=== PATIENT | male | born 1985 | race Caucasian/White ===

== ENCOUNTER → 2018-01-09 11:00 | Outpatient (CLI) | payer MEDICARE, MEDICAID, BC, SELFPAY ==
--- NOTE | 2018-01-09 11:07 | RAD_ITS ---
STUDY: X-RAY - RIGHT WRIST REASON FOR EXAM: Male, 32 years old. Pain and swelling TECHNIQUE: 3 view(s) of the wrist were obtained. COMPARISON: None. FINDINGS: There is fixation hardware spanning a healed distal radial fracture. The hardware is intact and alignment is satisfactory. There is no evidence of fracture or dislocation. There are no significant degenerative changes. There are no radiodense foreign bodies. RAD/Wrist min 3 Views IMPRESSION: Fixation hardware spanning a healed distal radial fracture with intact hardware in satisfactory alignment. No fracture or dislocation. Electronically Signed: Luis Fernando Macias, at 16:48 EST Tel , Service support ,
--- NOTE | 2018-01-09 11:07 | RAD_ITS ---
STUDY: X-RAY - RIGHT HAND REASON FOR EXAM: Male, 32 years old. Pain and swelling TECHNIQUE: 3 view(s) of the hand. COMPARISON: 07/25/2014 FINDINGS: There is no evidence of fracture or dislocation. There are no significant degenerative changes. There are no radiodense foreign bodies. RAD/Hand Min 3 Views IMPRESSION: No fracture or dislocation. Electronically Signed: Luis Fernando Macias, at 16:49 EST Tel , Service support ,
== END ==
PROVIDERS: Referring Provider Physician Assistant; Visit Provider Physician Assistant
DX: M25.531 Pain in right wrist (principal); M79.641 Pain in right hand
CPT/HCPCS: 73110; 73130

== ENCOUNTER 2018-05-22 20:06 | Emergency (ER) | payer BC, SELFPAY ==
[2018-01-09 10:59] VITALS: BMI 21.2
[2018-05-22 20:06] VITALS: BP 128/74; PULSE 59; RESP 18; TEMP 36.7; O2SAT 97; BMI 24.3
--- NOTE | 2018-05-22 21:06 | RAD_ITS ---
HISTORY: LOW BACK PAIN S/P INJURY LIFTING HEAVY OBJECT EXAM/TECHNIQUE: XR Spine Lumbar 2 or 3 Views: COMPARISON: CT abdomen pelvis 10/17/15 FINDINGS: # of images incl. paperwork: 3 No fracture or dislocation or osseous destruction. Alignment anatomic. No significant degenerative changes. No acute findings in the soft tissues. RAD/Lumbar Spine 2 or 3 Views IMPRESSION: No acute findings. at 2138 Reported and signed by: Chepe Hodge MD Electronically Signed: Chepe Hodge, at 21:37 EDT Tel , Service support ,
--- NOTE | 2018-05-22 22:32 | ED.DCSUM_ITS ---
- ER Visit Summary Date of Service: 05/22/18 Chief Complaint: [Back pain] History of Present Illness: The patient is a 32 M [presents the emergency department with complaint of back pain that he said for about 2 weeks. Patient states that he was at [place] when he lifted a large steel mud pump weighing approximately 200 pounds. Patient developed discomfort in his low back. Patient continues to have the same discomfort and ibuprofen is not helping his pain. Patient does not want to file this under workman's comp. He denies any numbness or tingling in his legs. He denies any pain radiating down the legs. He denies loss of bowel or bladder function. He denies saddle anesthesia.] Physical Examination: [HEENT-PERRLA, EOMI. Cranial nerves II through XII grossly intact. TMs clear. Mucous membranes moist. No adenopathy. Cardiovascular-regular rate and rhythm without murmur or ectopy Lungs-clear to auscultation, chest wall stable without crepitus or subcu emphysema Abdomen-normoactive bowel sounds, soft, nontender, no rebound or rigidity, no peritoneal signs. Back exam-patient has tenderness diffusely over the lower lumbar spine. No erythema or warmth noted. Negative straight leg raises. Deep tendon reflexes are plus 2 out of 4 bilaterally at the patella and Achilles. Patient has normal L5 extension bilaterally. Extremities-intact ?4, normal range of motion, normal pulses, atraumatic] Test Results: [Lumbar spine x-rays were normal.] Emergency Department Course and Treatment: [] Treatment Plan: [Patient will be given a prescription for Flexeril, Naprosyn, [place]. Patient will be given a referral to primary care physician for follow- up] Disposition: [Discharged home in stable condition] Impression: [Lumbar strain] This note was generated with [employer] dictation software. It may contain incorrect words, spelling, and punctuation that were not noted in review of the chart prior to signing ED Disposition - Plan for ED Patient: Referrals: Care Physician,No Primary [Primary Care Provider] -
--- NOTE | 2018-05-22 22:33 | DCINST.ED_ITS ---
ED Disposition - Plan for ED Patient: Instructions: ED Sprain Strain Lumbar Prescriptions: Hydrocodone Bitart/Apap 5-325 [[place] 5MG-325MG] 1 tab PO Q4H PRN PRN 2 Days #10 tab PRN Reason: Pain Naproxen [Naprosyn] 500 mg PO BID PRN #20 tab Cyclobenzaprine [Flexeril] 10 mg PO TID PRN #20 tab PRN Reason: Muscle Spasm Referrals: Care Physician,No Primary [Primary Care Provider] - Marin Varner MD [STAFF PHYSICIAN] - 5-7 Days
[2018-05-22] MEDS: HYDROcodone Bitartrate/Apap 5/325 Tablet PO (22:42)
[2018-05-22 22:43] VITALS: BP 138/87; PULSE 89; RESP 16; O2SAT 98
== END 2018-05-22 22:43 | disposition home or self-care (01) ==
LOC: ED 20:59
PROVIDERS: Emergency Provider Emergency Medicine
DX: S39.012A Strain of muscle, fascia and tendon of lower back, initial encounter (principal); Z72.0 Tobacco use; X50.0XXA Overexertion from strenuous movement or load, initial encounter; Y93.89 Activity, other specified; Y92.89 Other specified places as the place of occurrence of the external cause; Y99.0 Civilian activity done for income or pay
CPT/HCPCS: 72100; 99282

== ENCOUNTER 2020-04-26 10:28 | Emergency (ER) | payer SELFPAY ==
[2020-04-26 10:30] VITALS: BP 156/93; PULSE 83; RESP 16; TEMP 35.9; O2SAT 98; BMI 22.4
--- NOTE | 2020-04-26 11:00 | ED.DCSUM_ITS ---
- ER Visit Summary Date of Service: 04/26/20 Chief Complaint: Right elbow pain and swelling History of Present Illness: The patient is a 34 M who presents with pain and swelling to his right elbow that has been getting worse over the past week. Patient denies any trauma or injury. Patient states the pain is worse with complete extension and complete flexion. Patient describes the pain as stabbing. Patient states nothing seems to help with the pain. Patient states the pain is been constant. Patient denies any paresthesias or weakness. Patient denies any trauma or injury. Patient denies any fevers or chills. Patient denies any redness. Physical Examination: Vital signs are stable. Patient is afebrile. Patient is in no acute distress. Musculoskeletal exam reveals mild tenderness over the olecranon bursa. There is an effusion noted in the olecranon bursa. There is no erythema or warmth. There is no bony crepitance or step-off. Range of motion was slightly limited in complete flexion and complete extension secondary to pain. Sensation was intact to light touch bilaterally in the radial, median, and ulnar areas. Radial pulses are equal bilaterally. Strength is 5/5 bilateral knee radial, median, and ulnar areas. Emergency Department Course and Treatment: Patient was advised that this is olecranon bursitis. Patient was given a prescription for ibuprofen to take as needed for pain and swelling. Patient was instructed to use ice to the area. Patient was given an Dao wrap. Patient was given referral to orthopedics. Patient was instructed to follow-up with his primary care physician in 5 to 7 days. Patient understood and was agreeable with the plan. All questions were answered. Disposition: Discharge home Impression: Olecranon bursitis This note was generated with [employer] dictation software. It may contain incorrect words, spelling, and punctuation that were not noted in review of the chart prior to signing ED Disposition - Plan for ED Patient: Disposition: Home or Assisted Living Diagnosis: Olecranon bursitis, right elbow Instructions: ED Bursitis Prescriptions: Ibuprofen [Motrin] 800 mg PO TID PRN PRN #20 tab PRN Reason: Swelling Prescription Printed Referrals: Abundio Nash DO [STAFF PHYSICIAN] - 5-7 Days
== END 2020-04-26 11:39 | disposition home or self-care (01) ==
LOC: ED 11:14
PROVIDERS: Emergency Provider Emergency Medicine
DX: M70.21 Olecranon bursitis, right elbow (principal); F17.200 Nicotine dependence, unspecified, uncomplicated
CPT/HCPCS: 99282

== ENCOUNTER 2021-07-25 13:59 | Emergency (ER) | payer MEDICARE, MEDICAID, SELFPAY ==
[2021-07-25 14:00] VITALS: BP 134/81; PULSE 80; RESP 16; TEMP 36.9; O2SAT 99; BMI 22.3
--- NOTE | 2021-07-25 14:17 | EX.ED.UPPERE ---
HPI History of Present Illness Chief Complaint: Upper Extremity Injury Informant: patient Narrative Narrative: Patient is noted a swollen area on the inner surface of his proximal left forearm for about a month maybe 2 months. He does not recall any specific injury at this time. He has no numbness tingling weakness. No fevers or chills. No pain with motion of the elbow at all. Nothing really makes it better or worse. It is never been red. It is never drained. No other areas. He has not been seen before for this. He does have a history of a small fracture in the elbow many years ago. So he cannot fully straighten the arm but that is not new or different. [facility] Medical History Arthritis Chest pain Chronic neck and back pain Hemorrhoid Knee pain Shoulder pain Unexplained weight loss Allergy/AdvReac Type Severity Reaction Status Date / Time No Known Allergies Allergy Verified 07/25/21 14:00 Social History Smoking Status: Current every day smoker tobacco type: cigarettes alcohol intake: never ROS ROS ED Constitutional Constitutional ED: Denies chills, fever(s), subjective or sweats Respiratory/Chest Respiratory/Chest: Denies dyspnea Gastrointestinal Gastrointestinal: Denies nausea or vomiting Musculoskeletal Musculoskeletal: Reports other Details: See history of present illness. ; Denies myalgias or neck pain Integumentary Reports other Details: See history of present illness peer Neurologic Neurologic: Denies paresthesias or weakness Endocrine Endocrinology: Denies polydipsia or polyuria Hematologic/Lymphatic Hematologic/Lymphatic: Denies easy bleeding or easy bruising Allergic/Immunologic Allergic/Immunologic ED: Denies urticaria EXAM Physical Exam Const Vital Signs: 07/25/21 14:00 Temperature 98.4 F Temperature Source Temporal Pulse Rate 80 Respiratory Rate 16 Blood Pressure 134/81 H Blood Pressure Mean 98 Pulse Ox 99 Oxygen Delivery Method Room Air Positive well nourished and well developed General Appearance ED: well developed and NAD HEENT Reports moist mucous membranes Resp normal respiratory effort Extremity Extremity Narrative: Patient does have a very well demarcated area about 1-1/2 to 2 cm around in the medial aspect of the forearm just distal to the elbow. It is very mobile within the subcutaneous tissue. It is not tender. It is not red. It is soft but not truly fluctuant. No swelling around the elbow itself. No pain with motion. He does have slight limitation of motion chronically as in history of present illness. No other areas are felt. Neuro no sensory deficits noted Sensorium / Orientation: alert Motor Exam: strength 5/5 throughout Psych mental status grossly normal Skin Skin Narrative: See above. MDM MDM MDM Narrative Medical decision making narrative: Patient has no injury or trauma. He does not use or inject any drugs. There is no redness. No sign of infection. This is been present for over a month. It feels as though this could be a lipoma. It certainly possible he could have a small seroma from injury. But this does not need to be drained or excised at this time. Follow-up will be appropriate. Plan was to follow-up with orthopedics. However, patient left because something happened and he had to leave all of a sudden. I did not get back in to talk to them. I had been seeing a patient with an acute neurologic deficit. Discharge Plan Triage Chief Complaint: Upper Extremity Injury ED Provider: Wiliam Schmidt Dx/Rx/DC Orders Clinical Impression: Soft tissue lesion of elbow region, Eloped from emergency department Primary Care Provider: Care Physician,No Primary Referrals: Care Physician,No Primary [Primary Care Provider] - Disposition Disposition: Elopement
--- NOTE | 2021-07-25 14:46 | ED.RN ---
PATIENT WAITING ON DISCHARGE PAPER WORK. EXITS ROOM, APOLOGIZES, AND STATES HE HAS SOMETHING IMPORTANT TO GO TO AND AMBULATED OUT OF THE ER. DR. OAKES NOTIFIED.
== END 2021-07-25 14:55 | disposition left against medical advice (07) ==
PROVIDERS: Emergency Provider Emergency Medicine; Visit Provider Emergency Medicine
DX: L98.9 Disorder of the skin and subcutaneous tissue, unspecified (principal); F17.210 Nicotine dependence, cigarettes, uncomplicated
CPT/HCPCS: 99282

== ENCOUNTER 2021-08-25 16:37 | Emergency (ER) | payer MEDICARE, MEDICAID, SELFPAY ==
[2021-08-25 16:38] VITALS: BP 131/91; PULSE 85; RESP 16; TEMP 37.4; O2SAT 99; BMI 21.7
--- NOTE | 2021-08-25 17:08 | EX.ED.UPPERE ---
HPI History of Present Illness Chief Complaint: Upper Extremity Injury Informant: patient Occured/Mechanism Comment: No injury. Onset/Context/Timing Context: Gradual Onset Timing: Intermittent Current Severity: Mild Maximum Severity: Mild Associated Symptoms Associated Symptoms: Negative for Parasthesia, Weakness or Loss of Funtion Narrative Narrative: 35-year-old male no significant past medical or surgical history. Said years ago he broke his right elbow. He has limited range of motion in the elbow. He said at times he gets an area that is gets tender. Denies any other complaints. Prior similar symptoms: No Recent Illness/Hospitalization: No PFSH PFSH Medical History Arthritis Chest pain Chronic neck and back pain Hemorrhoid Knee pain Shoulder pain Smoker Unexplained weight loss Home Medications NK 08/25/21 [History Last Taken Unknown] Allergy/AdvReac Type Severity Reaction Status Date / Time No Known Allergies Allergy Verified 07/25/21 14:00 Social History Smoking Status: Current every day smoker tobacco type: cigarettes alcohol intake: never ROS ROS ED ROS Narrative Denies recent illness. Review of Systems ROS Unobtainable: Denies due to encephalopathy Constitutional Constitutional ED: Denies chills Eyes Eyes: Denies blurry vision ENT ENT ED: Denies ear pain Cardiovascular Cardiovascular: Denies chest pain Respiratory/Chest Respiratory/Chest: Denies cough Gastrointestinal Gastrointestinal: Denies abdominal pain Genitourinary Genitourinary ED: Denies dysuria Musculoskeletal Musculoskeletal: Denies back pain Integumentary Denies abscess Neurologic Neurologic: Denies headache(s) Psychiatric Psychiatric: Denies anxiety Endocrine Endocrinology: Denies cold intolerance Hematologic/Lymphatic Hematologic/Lymphatic: Denies easy bleeding Allergic/Immunologic Allergic/Immunologic ED: Denies mouth swelling EXAM Physical Exam Narrative Exam Narrative: Well-appearing 35-year-old male. Vital signs stable afebrile. Heart lung dull exam unremarkable. Right elbow medial aspect in the subcu tissue there is an area that is mildly tender may be a ganglion cyst. Could also be a calcification. He has limited range of motion of the right elbow which is chronic from a prior fracture. There is no redness or warmth. There is no signs of infection. There is no axillary lymphadenopathy. Right wrist and hand are nontender. Nonswollen. 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 Normal radial pulse. Const Vital Signs: 08/25/21 16:38 Temperature 99.3 F H Temperature Source Temporal Pulse Rate 85 Respiratory Rate 16 Blood Pressure 131/91 H Blood Pressure Mean 104 Pulse Ox 99 Oxygen Delivery Method Room Air Positive well nourished and well developed; Negative for obese, cachectic, contractures or unkempt General Appearance ED: well developed; Negative for unkempt, cachectic or contractures Nutritional Appearance: Negative for cachectic or obese HEENT Reports moist mucous membranes normocephalic and atraumatic; Negative for trauma or tenderness Eyes PERRL and EOMs intact bilaterally Neck full ROM and supple General: Negative for tenderness Lymph Lymphatic: Negative for other Chest Wall inspection of chest normal and palpation of chest normal Resp normal respiratory effort and clear to auscultation bilaterally Auscultation: Negative for rales, rhonchi or wheezes Cardio regular rate, regular rhythm, S1 normal heart sound, S2 normal heart sound and no murmurs Rate: Negative for bradycardia Rhythm: Negative for abnormal rhythm GI non-tender, non-distended and no masses Inspection: Negative for abdominal distention Auscultation: normoactive bowel sounds Palpation: soft; Negative for tender or guarding Extremity normal to inspection and full ROM Extremity Narrative: Except right elbow and subcu tissue immediately there is a small area that is tender that may be a ganglion cyst versus calcification versus other etiology. There is no signs of external foreign body, puncture wound or infection. He has limited supination and pronation of the right elbow from a prior fracture but he has normal flexion extension. The elbow itself is not tender, warm, red or swollen. There is no axillary lymphadenopathy. Neuro oriented x3, moves all extremities, no focal motor deficits and no sensory deficits noted Sensorium / Orientation: alert, oriented to person, oriented to place and oriented to time Motor Exam: strength 5/5 throughout Psych mental status grossly normal Appearance: Negative for unkempt Attitude: No agitated Mood & Affect: Negative for depressed or anxious Skin General Skin Exam: Negative for petechiae Lesions: no lesions Rashes: no rashes Trauma: no lacerations or abrasions MDM MDM MDM Narrative Medical decision making narrative: 35-year-old male with possible ganglion cyst radial near his right elbow. Explained him there is nothing to do currently. He can follow-up with orthopedics if he wanted either injected or possibly resected. This could also be a calcification.. He was offered but deferred x-ray at this time. Discharge Plan Triage Chief Complaint: Upper Extremity Injury ED Provider: Shashank Brunson Dx/Rx/DC Orders Clinical Impression: Ganglion cyst Instructions: ED Ganglion Cyst Prescriptions: No Action NK Primary Care Provider: Care Physician,No Primary Referrals: Shoaib Mishra MD [STAFF PHYSICIAN] - As Needed Care Physician,No Primary [Primary Care Provider] - Activity Restrictions/Additional Instructions: This is most likely a ganglion cyst. Often they do not do anything for these. Sometimes you can have them surgically removed. Or injected. You can follow-up with the orthopedic doctor to discuss that with them. If is not bothering you you do not need to do anything. This could also just be a calcification. Disposition Disposition: Home, Self Care
[2021-08-25 17:19] VITALS: BP 120/75; PULSE 76; RESP 15; O2SAT 98
== END 2021-08-25 17:20 | disposition home or self-care (01) ==
PROVIDERS: Emergency Provider Emergency Medicine; Visit Provider Emergency Medicine
DX: M67.421 Ganglion, right elbow (principal)
CPT/HCPCS: 99282

== ENCOUNTER 2023-04-14 04:40 | Emergency (ER) | payer MEDICAID, SELFPAY ==
--- OUTSIDE RECORDS SUMMARY | 2023-04-14 06:50 | XMS RPT_ITS | CCD ---
Author Name Unknown Address [address] [facility] [address] [place] [address] Organization [facility] Care Team Providers Care [employer] Name Role Phone Aram Renner Unavailable Unavailable [facility] Unavailable Unavailable Aram Renner Unavailable Unavailable Aram Renner Unavailable Unavailable RennerAram quintana Unavailable Unavailable [facility] Unavailable Unavailable RennerAram quintana Unavailable Unavailable [facility] Unavailable Unavailable Farrier, Lucía L Unavailable Unavailable [facility] Unavailable Unavailable Farrier, Lucía L Unavailable Unavailable [facility] Unavailable Unavailable Farrier, Lucía L Unavailable Unavailable [facility] Unavailable Unavailable Farrier, Lucía L Unavailable Unavailable Farrier, Lucía L Unavailable Unavailable Farrier, Lucía L Unavailable Unavailable [facility] Unavailable Unavailable Required, No Pcp Unavailable Unavailable Amilcar Lopez Unavailable Unavailable Roge Rico Unavailable SIRI BONNER Attending Unavailable SIRI BONNER Primary Care Unavailable SIRI BONNER Admitting Unavailable Dr. Roge Rico Attending Unavail able John, Dr. Amilcar Hylton Attending Unavaila ble Unavailable Primary Care Provider Unavailabl e Medications Completed/Discontinued Medications Medication Drug Class(es) Dates Sig (Normalized) Sig (Original) hydrocortisone acetate 25 mg rectal suppository (1 source) Corticosteroid Start: 04-14-2017 hydrocortisone (HEMORRHOIDAL HC) 25 mg suppository 1 Suppository by RECTAL route twice daily. 14 Suppository 0 04/14/2017 Active Problems Active Problems Problem Classification Problem Date Documented Da te Episodic/Chronic E Codes: Other specified and classifiable (1 source) Caught, crushed, jammed, or pinched between stationary objects, initial encounter; Translations: [Caught, crush, jammed, or pinched betw stationry obj, init] Onset: 06-26-2022 Episodic Other connective tissue disease (2 sources) Pain in left finger(s); Translations: [Pain in left finger(s)] Onset: 06-26-2022 Episodic Other connective tissue disease (2 sources) Other specified soft tissue disorders; Translations: [Other specified soft tissue disorders] Onset: 06-26-2022 Episodic Other connective tissue disease (1 source) Pain in right hand; Translations: [Pain in right hand] 09-23-2022 Episodic Unclassified (4 sources) RIGHT ELBOW PAIN 01-17-2022 Past or Other Problems Problem Classification Problem Date Documented Da te Episodic/Chronic E Codes: Fall (1 source) Unspecified fall, initial encounter; Translations: [Unspecified fall, initial encounter] Onset: 01-17-2022 Episodic Hemorrhoids (1 source) Thrombosed hemorrhoids; Translations: [Perianal venous thrombosis] Onset: 05-24-2014 05-24-2014 Episodic Other injuries and conditions due to external causes (1 source) Unspecified injury of right elbow, initial encounter; Translations: [Unspecified injury of right elbow, initial encounter] Onset: 01-17-2022 Episodic Other non-traumatic joint disorders (1 source) Pain in right elbow; Translations: [Pain in right elbow] Onset: 01-17-2022 Episodic Superficial injury; contusion (3 sources) Contusion of elbow; Translations: [Contusion of elbow] Onset: 01-17-2022 01-17-2022 Episodic Results Test Name Value Interpretation Reference Range Facil ity Vital Signs Date Time Vital Sign Value Performing Clinician Faci lity 01-17-2022 13:30-0500 Diastolic blood pressure 88 mm[Hg] No Pcp Required [facility] 01-17-2022 13:30-0500 Heart rate 78 /min No Pcp Required [facility] 01-17-2022 13:30-0500 Respiratory rate 16 /min No Pcp Required [facility] 01-17-2022 13:30-0500 SaO2% (BldA) [Mass fraction] 100 % No Pcp Required [facility] 01-17-2022 13:30-0500 Systolic blood pressure 134 mm[Hg] No Pcp Required [facility] 01-17-2022 12:03-0500 Body height 170.1 cm No Pcp Required [facility] 01-17-2022 12:03-0500 Body temperature 97.7 [degF] No Pcp Required [facility] 01-17-2022 12:03-0500 Body weight 66 kg No Pcp Required [facility] Encounters Encounter Date Encounter Type Care Provider Facility Start: 09-23-2022 Orders Only Ravi Harley MD Work Phone: Orthopaedics Plan of Treatment Date Care Activity Detail Author Start: 10-15-2022 Influenza vaccination INFLUENZA (#1) [facility] Start: 02-14-2022 DEPRESSION ASSESSMENT DEPRESSION ASSESSMENT [facility] Start: 2021 LIPID SCREEN LIPID SCREEN [facility] Start: 2005 Urine microalbumin profile DTAP,TDAP,TD (1 - Tdap) [facility] Start: 2004 HEPATITIS C SCREENING HEPATITIS C SCREENING [facility] Start: 2004 HIV SCREENING HIV SCREENING [facility] Start: 1992 PNEUMOCOCCAL (1 - PCV) PNEUMOCOCCAL (1 - PCV) [facility] Start: 05-09-1987 COVID-19 VACCINE (#1) COVID-19 VACCINE (#1) [facility] Start: 1986 HEPATITIS B (1 of 3 - 3-dose series) HEPATITIS B (1 of 3 - 3-dose series) [facility] End: 10-23-2023 XR HAND GENERAL 3V PA/LAT/OBL RIGHT XR HAND GENERAL 3V PA/LAT/OBL RIGHT Radiology Routine Right hand pain 1 Occurrences starting 09/23/2022 until 10/23/2023 [facility] Work Phone: Payers Date Payer Category Payer Medicaid MEDICAID [facility] MEDICAID [id number] 2017-Present [phone] [address] [place] [address] Medicaid [id number] 2016 Medicare 2016 Unknown 2016 Worker's Compensation 1986 Unknown [id number] 1986 Unknown [id number] 1986 Unknown [id number] Medicaid [id number] Medicare [id number] Unknown [id number] Social History Date Type Detail Facility [facility] Tobacco smoking consumption unknown [facility] Start: 10-18-2019 Tobacco smoking stat us NHIS Smokes tobacco daily [facility] History of tobacco use Cigarette Smoker [facility] Start: 10-18-2019 End: 01-22-2020 Cigarettes smoked current (pack per day) - Reported 0.5 [facility] Start: 10-18-2019 Tobacco use and exposure User of smokeless tobacco [facility] History of tobacco use Chews Tobacco [facility] Start: 10-18-2019 Alcohol intake Ex-drinker (finding) [facility] Start: 10-18-2019 End: 01-22-2020 Tobacco use panel [facility] National Score (1-10 0), lower number is lower risk Not on file [facility] Start: 10-18-2019 Tobacco Comment quiotting info rmation given [facility] Start: 05-23-2014 [facility] Start: 1985 Sex Assigned At Not on file [facility] Evaluation note Note Date & Type Note Facility documented in this encounter [facility] Reason for referral (narrative) Diagnostic Procedure Only (Routine) - Pending Review Note Date & Type Note Facility Referral ID Status Reason Start Date Expiration Date Visits Requested Visits Authorized [id number] Pending Review Auto-Generat ed Referral 09/23/2022 10/23/2023 1 1 [facility] Summary Purpose Family History No Family History Records FoundNo Family History Records FoundNo Family History Records FoundNo Family History Records FoundNo Family History Records Found Advance Directives No Advanced Directives Records FoundNo Advanced Directives Records FoundNo Advanced Directives Records FoundNo Advanced Directives Records FoundNo Advanced Directives Records Found Reason for Referral * Right Elbow ContusionRight Elbow Contusion * Right Elbow ContusionRight Elbow Contusion Additional Source Comments (unrecognized sect ion and content) No Status Records FoundNo Status Records FoundNo Status Records FoundNo Status Records FoundNo Status Records Found INFORMATION SOURCE (unrecogn ized section and content) DATE CREATED AUTHOR AUTHOR'S ORGANIZ ATION 10/25/2019 [facility] DATE CREATED AUTHOR AUTHOR'S ORGANIZ ATION 03/09/2021 [facility] DATE CREATED AUTHOR AUTHOR'S ORGANIZ ATION 06/27/2022 [facility] DATE CREATED AUTHOR AUTHOR'S ORGANIZ ATION 08/28/2022 [facility] <item><item><item> Privacy Markings (unrecogniz ed section and content) Section Author: Ayde Sousa PROHIBITION ON REDISCLOSURE OF CONFIDENTIAL INFORMATION This notice accompanies a disclosure of information concerning a client made to you with the consent of such client. Section Author: Ayde Sousa PROHIBITION ON REDISCLOSURE OF CONFIDENTIAL INFORMATION This notice accompanies a disclosure of information concerning a client made to you with the consent of such client. Section Author: Ayde Sousa PROHIBITION ON REDISCLOSURE OF CONFIDENTIAL INFORMATION This notice accompanies a disclosure of information concerning a client made to you with the consent of such client. Source Comments (unrecognize d section and content) In the event this informatio n is protected by the Federal Confidentiality of Alcohol and Drug Abuse Patient Records regulations: The Federal rules restrict any use of the information to criminally investigate or prosecute any alcohol or drug abuse patient.[facility] FOR RECORDS PERTAINING TO PATIENTS WHO ARE OR HAVE BEEN ENROLLED IN A CHEMICAL DEPENDENCY/SUBSTANCEABUSE PROGRAM, SOME INFORMATION MAY BE OMITTED. This clinical summary was aggregated from multiple sources. Caution should be exercised in using it in the provision of clinical care. This summary normalizes information from multiple sources, and as a consequence, information in this document may materially change the coding, format and clinical context of patient data. In addition, data may be omitted in some cases. CLINICAL DECISIONS SHOULD BE BASED ON THE PRIMARY CLINICAL RECORDS. [facility] [employer] [facility]. provides no warranty or guarantee of the accuracy or completeness of information in this document.
== END 2023-04-14 05:47 | disposition home or self-care (01) ==
LOC: ED 06:38
PROVIDERS: Emergency Provider Emergency Medicine; Visit Provider Emergency Medicine
DX: H16.9 Unspecified keratitis (principal)
CPT/HCPCS: 99284

== ENCOUNTER 2023-05-17 16:42 | Emergency (ER) | payer MEDICAID, SELFPAY ==
[2023-05-17 16:43] VITALS: BP 131/95; PULSE 75; PULSE 87; RESP 16; TEMP 36.3; O2SAT 99; BMI 23.3
--- NOTE | 2023-05-17 16:50 | ED.RN ---
RT SIDE FACIAL DROOP, WHEN PT RAISES EYEBROWS ABLE TO WRINKLE LT SIDE OF FOREHEAD BUT NOT RT SIDE OF FOREHEAD.
--- NOTE | 2023-05-17 17:32 | EDS_ITS ---
HPI History of Present Illness Chief Complaint: Numb/Ting Narrative Narrative: 37-year-old male presenting with numbness and tingling to the right side of his upper lip and right side of his face which started about 5 to 6 days ago. Patient states it came on fairly abruptly. No history of stroke. He states he has not had any medical problems otherwise. He states that he has been able to eat but notices when he brushes his teeth that he drools out of the right side of his mouth. Denies headache, visual complaints. Patient does state that a week before that he noticed he had a little bit of ear pain and facial pain which had gone away. This was on the right side as well. Patient states that after several days of this numbness and tingling he became concerned. [facility] Medical History Arthritis Chest pain Chronic neck and back pain Hemorrhoid Knee pain Shoulder pain Smoker Unexplained weight loss Home Medications acyclovir 800 mg tablet 800 mg PO 5X/DAY #35 TABLETS 05/17/23 [Rx Last Taken Unknown] prednisone 20 mg tablet 60 mg (3 x 20 mg) PO DAILY #18 TABLETS 05/17/23 [Rx Last Taken Unknown] white petrolatum-mineral oil 56.8 %-42.5 % eye ointment (Refresh Lacri-Lube) 1 applic EACH EYE BID PRN dry eyes #3.5 grams 05/17/23 [Rx Last Taken Unknown] Allergy/AdvReac Type Severity Reaction Status Date / Time No Known Allergies Allergy Verified 05/17/23 16:45 Social History Smoking Status: Current every day smoker tobacco type: cigarettes alcohol intake: never ROS ROS ED Constitutional Constitutional ED: Denies chills, fever(s) or sweats Eyes Eyes: Denies blurry vision or change in vision ENT ENT ED: Denies ear pain or sore throat Cardiovascular Cardiovascular: Denies chest pain, palpitations or racing heartbeat Respiratory/Chest Respiratory/Chest: Denies cough, dyspnea or sputum Gastrointestinal Gastrointestinal: Denies abdominal pain, constipation, diarrhea, nausea or vomiting Genitourinary Genitourinary ED: Denies dysuria, hematuria or urinary frequency Musculoskeletal Musculoskeletal: Denies arthralgias, myalgias or neck pain Integumentary Denies abscess, Abrasions or rash Neurologic Neurologic: Reports paresthesias and other Details: Right-sided facial droop ; Denies headache(s) or weakness Psychiatric Psychiatric: Denies anxiety, depression, suicidal ideation or suicidal thoughts Endocrine Endocrinology: Denies polydipsia or polyuria EXAM Physical Exam Const Vital Signs: 05/17/23 16:43 05/17/23 16:43 Temperature 97.4 F L 97.4 F L Temperature Source Temporal Temporal Pulse Rate 75 87 Respiratory Rate 16 16 Blood Pressure 131/95 H 131/95 H Blood Pressure Mean 107 107 Pulse Ox 99 99 Oxygen Delivery Method Room Air Room Air Positive well nourished General Appearance ED: NAD; Negative for pallor HEENT Reports moist mucous membranes Eyes PERRL and EOMs intact bilaterally Chest Wall inspection of chest normal Resp normal respiratory effort Cardio regular rate and regular rhythm Neuro oriented x3 Neuro Narrative: Mild right-sided facial droop at the right nasolabial fold with mild decrease sensation loss over the right cheek and the right lower chin. Also noted decreased sensation over the right forehead. Right forehead is not spared and he is not able to wrinkle his forehead. Sensorium / Orientation: alert Motor Exam: strength 5/5 throughout Psych mental status grossly normal Skin General Skin Exam: Negative for jaundice or pallor MDM MDM MDM Narrative Medical decision making narrative: Patient with symptoms of Williamson's palsy. He states his symptoms happened with last week. He became concerned and they did not go away. He also reports right ear pain and right facial pain about a week prior to this. Patient counseled that likely medication will be less useful a week out but we will start him on Soma slightly on prednisone. He is also counseled to keep his right eye closed when he sleeps and to use some lubricating drops which were prescribed to him. Patient counseled this will take to take weeks and sometimes months. Return precautions discussed. Impression: 1. Right-sided Williamson's palsy Discharge Plan Triage Chief Complaint: Numb/Ting ED Provider: Elia Knight Dx/Rx/DC Orders Instructions: Williamson's Palsy Prescriptions: New acyclovir 800 mg tablet 800 mg PO 5X/DAY Qty: 35 0RF prednisone 20 mg tablet 60 mg PO DAILY Qty: 18 0RF Refresh Lacri-Lube 56.8-42.5 % ointment 1 applic EACH EYE BID PRN (Reason: dry eyes) Qty: 3.5 0RF Rx Instructions: Please use at nighttime before bed. Primary Care Provider: Care Physician,No Primary Referrals: [facility] [Outside] - 3-5 Days Care Physician,No Primary [Primary Care Provider] - Disposition Disposition: Home, Self Care
--- NOTE | 2023-05-17 17:59 | ED.RN ---
pt left without prescriptions and d/c papers
== END 2023-05-17 18:03 | disposition home or self-care (01) ==
LOC: ED 17:37
PROVIDERS: Emergency Provider Student in an Organized Health Care Education/Training Program; Visit Provider Student in an Organized Health Care Education/Training Program
DX: G51.0 Bell's palsy (principal); F17.210 Nicotine dependence, cigarettes, uncomplicated
CPT/HCPCS: 99282

== ENCOUNTER → 2023-11-11 | Outpatient (CLI) | payer MEDICAID, SELFPAY ==
--- NOTE | 2023-11-11 17:04 | CT_ITS ---
EXAM: CT RIGHT UPPER EXTREMITY WITHOUT INTRAVENOUS CONTRAST CLINICAL INDICATION: pain at the base of the 5th MC after fracture TECHNIQUE: Helically acquired images were obtained of the right upper extremity without intravenous contrast. 2-D reformats were performed by the technologist. This CT exam was performed using one or more of the following dose reduction techniques: automated exposure control, adjustment of the mA and/or kV according to patient size, and/or use of iterative reconstruction technique. COMPARISON: No relevant prior studies available. FINDINGS: BONES/JOINTS: Diffuse degenerative narrowing of the carpometacarpal joints associated with subchondral cyst formation and mild osteophytosis.. Portion of the deformity involving the base of the fourth and fifth metacarpals and the distal articular surface of the hamate may be related to old fractures. Remainder of the bones and joints of the hand and wrist appear intact. Surgical fixation partially visualized along the distal portion of the radius. SOFT TISSUES: Normal. No soft tissue swelling or gas. No radiopaque foreign body. CT/Extremity Upper without Contra IMPRESSION: Degenerative changes of the carpometacarpal joints which may be related to prior injury. No acute bone or joint abnormality. Electronically Signed: Monster Corado MD at 8:44 EDT ,
== END | disposition home or self-care (01) ==
LOC: CT 17:03
PROVIDERS: Referring Provider Orthopaedic Surgery Sports Medicine; Visit Provider Orthopaedic Surgery Sports Medicine
DX: M79.641 Pain in right hand (principal)
CPT/HCPCS: 73200

== ENCOUNTER 2023-11-12 08:31 | Emergency (ER) | payer MEDICAID, SELFPAY ==
[2023-11-12 08:32] VITALS: BP 130/91; PULSE 77; RESP 18; TEMP 36.5; O2SAT 98; BMI 22.6
--- NOTE | 2023-11-12 08:55 | ED.RN ---
WENT IN TO ASSESS PT AND PT STATES HE WANTS INFORMATION ABOUT BEING SICK. EXPLAINED PT NEEDS TO PUT A GOWN ON AND THAT THE DR WILL BE IN TO SEE HIM. PT IS REFUSING TO PUIT A GOWN ON AND DOESN'T FEEL HE NEEDS TO HAVE THINGS DONE. WANTS TO KNOW HOW LONG THIS WILL TAKE AND EXPLAINED IT MAY TAKE AWHILE BECAUSE THIS IS THE EMERGENCY ROOM AND THERE ARE OTHER PT AND THAT TEST TAKE AWHILE TO COME BACK. PT AGAIN STATES HE JUST WANTS INFORMATION. TRIED TO COVER WHAT QUESTIONS HE HAD AND DISCUSS DIFFERENT OTC THINGS HE CAN TAKE. PT DOES NOT SEEM TO BE UNDERSTANDING TO THE DR WILL BE IN BUT MIGHT NOT BE IMMEDIATELY D/T OTHER PTS BEING IN ER WELL. AGAIN EXPLAINED THAT HE NEEDED A GOWN ON AND HE AGAIN WAS NOT COOPERATIVE WITH THAT. PT LEFT SHORTLY AFTER THIS NURSE BEING IN THE ROOM
== END 2023-11-12 09:01 | disposition left against medical advice (07) ==
LOC: ED 09:01
DX: Z53.21 Procedure and treatment not carried out due to patient leaving prior to being seen by health care provider (principal)
CPT/HCPCS: 99282